=== PATIENT | male | born 1965 | race Caucasian/White ===

== ENCOUNTER 2017-05-07 10:07 | Emergency (ER) | payer BC, OTHER ==
[2017-05-07 10:08] VITALS: BMI 36.9
[2017-05-07 10:22] VITALS: RESP 17; TEMP 96; O2SAT 98
--- NOTE | 2017-05-07 10:48 | ED PDOC ---
HPI: Wound Care - HPI Time Seen by Provider: 05/07/17 10:44 Chief Complaint (Nursing): Finger,Hand,&Wrist Chief Complaint (Provider): thumb injury History Per: Patient Exam Limitations: no limitations Additional Complaint(s): 51yo M in ER for eval of left thumb injury sustained last night from a power drill. states that drill penetrated the nail of the left first digit-with out current active bleeding and mild pain. no swelling no dec. sensation no weakness. tetanus not uptodate. Past Medical History Reviewed: Historical Data, Nursing Documentation, Vital Signs Vital Signs: Last Vital Signs Temp 96 F L 05/07/17 10:17 Pulse 84 05/07/17 10:17 Resp 17 05/07/17 10:17 BP 111/77 05/07/17 10:17 Pulse Ox 98 05/07/17 10:17 - Medical History PMH: Diabetes, HTN, Hypercholesterolemia - Family History Family History: States: Unknown Family Hx - Immunization History Hx Tetanus Toxoid Vaccination: No Hx Influenza Vaccination: No Hx Pneumococcal Vaccination: No - Home Medications Home Medications: Ambulatory Orders Medication Instructions Recorded Cyclobenzaprine [Flexeril] 5 mg PO Q8H #20 tab 08/13/15 Naproxen [Naprosyn] 500 mg PO BID #20 tab 08/13/15 Oseltamivir Phosphate [Tamiflu] 75 mg PO BID #10 capsule 07/08/16 Bacitracin OINT 1 applic TP DAILY #1 tube 05/07/17 Cephalexin [cephalexin] 500 mg PO BID #20 cap 05/07/17 - Allergies Allergies/Adverse Reactions: Allergies Allergy/AdvReac Type Severity Reaction Status Date / Time No Known Allergies Allergy Verified 07/08/16 08:29 Review of Systems ROS Statement: Except As Marked, All Systems Reviewed And Found Negative Musculoskeletal: Positive for: Hand Pain Physical Exam - Reviewed Nursing Documentation Reviewed: Yes Vital Signs Reviewed: Yes - Physical Exam Appears: Positive for: Well, Non-toxic, No Acute Distress Skin: Positive for: Normal Color, Warm, DRY Cardiovascular/Chest: Positive for: Regular Rate, Rhythm Respiratory: Positive for: CNT, Normal Breath Sounds Extremity: Positive for: Other (right hand: puncture wound through nail bed-no active bleeding noted very minimal subungal hematoma visible. no swelling nuerovasc intact. ) Neurologic/Psych: Positive for: Alert, Oriented - ECG O2 Sat by Pulse Oximetry: 98 Medical Decision Making Medical Decision Making: wound cleaned in ER tetatus updated in ER advised to cover wound apply abx ointment and take keflex PO Temp Pulse Resp BP Pulse Ox 96 F L 84 17 111/77 98 05/07/17 10:17 05/07/17 10:17 05/07/17 10:17 05/07/17 10:17 05/07/17 10:48 Disposition - Clinical Impression Clinical Impression: Puncture wound, Subungual hematoma, Tetanus - Patient ED Disposition Is Patient to be Admitted: No Counseled Patient/Family Regarding: Diagnosis, Need For Followup, Rx Given - Disposition Referrals: [facility] [Outside] [facility] [Outside] Disposition: Routine/Home Disposition Time: 10:52 Condition: STABLE Prescriptions: Bacitracin OINT 1 applic TP DAILY #1 tube Cephalexin [cephalexin] 500 mg PO BID #20 cap Instructions: Puncture Wound (ED) Forms: [facility] ED School/Work Excuse
[2017-05-07 11:31] VITALS: BP 120/60; PULSE 65
== END 2017-05-07 11:31 | disposition home or self-care (01) ==
LOC: H.ER 10:07
DX: S60.112A Contusion of left thumb with damage to nail, initial encounter (principal); S61.012A Laceration without foreign body of left thumb without damage to nail, initial encounter; W29.8XXA Contact with other powered hand tools and household machinery, initial encounter; Y92.89 Other specified places as the place of occurrence of the external cause; E11.9 Type 2 diabetes mellitus without complications; E78.00 Pure hypercholesterolemia, unspecified; I10 Essential (primary) hypertension